=== PATIENT | female | born 1945 | race Caucasian/White ===

== ENCOUNTER 2025-05-21 09:41 | Inpatient (IN) | payer MEDICARE, OTHER ==
[~2025-05-21] VITALS: Ht 162.6 cm; Wt 60.3 kg
[~2025-05-21 09:41] MED LIST: AMLODIPINE BES2.5 MG PO; Acetaminophen650 M1 PO; DORZOLAMIDE-TIM10 ML RIGHTEYE; LISI20 PO; LOPERAMIDE212 PO; OXYC5 PO
[2025-05-21] MEDS ORDERED: Ondansetron HCl 2 MG / ML 2ML Vial IV ONE (10:00)
[2025-05-21 10:12] LABS: BASOPHILS ABSOLUTE AUTO 0.07 K/mm3 (0.00-0.23); BASOPHILS PERCENT AUTO 1 % (0-2); EOSINOPHILS ABSOLUTE AUTO 0.09 K/mm3 (0.00-0.68); EOSINOPHILS PERCENT AUTO 1 % (0-6); Hematocrit 46.9 % (33.0-51.0); Hemoglobin 15.5 g/dL (11.5-16.0); IMMATURE GRAN ABSOLUTE AUTO 0.07 K/mm3 (0.00-0.10); IMMATURE GRAN PERCENT AUTO 1 % (0-1); LYMPHOCYTES ABSOLUTE AUTO 1.49 K/mm3 (0.84-5.20); LYMPHOCYTES PERCENT AUTO 14 % (21-46); MONOCYTES ABSOLUTE AUTO 1.26 K/mm3 (0.16-1.47); MONOCYTES PERCENT AUTO 12 % (4-13); Mean Corpuscular HGB Conc 33.0 g/dL (31.5-36.5); Mean Corpuscular Volume 90 fL (80-100); NEUTROPHILS ABSOLUTE AUTO 7.41 K/mm3 (1.96-9.15); NEUTROPHILS PERCENT AUTO 71 % (41-73); NRBC ABSOLUTE 0.00 K/mm3 (0.00-0.02); NRBC Auto 0.0 /100 WBC (0.0-0.2); Platelet Count 343 K/mm3 (150-400); RDW Coefficient Variation 13.1 % (11.7-14.2); RDW Standard Deviation 43.7 fL (35.1-46.3)
[2025-05-21 10:33] LABS: Alanine Aminotransfer (ALT/SGP 16 U/L (12-78); Albumin, Blood 3.6 g/dL (3.4-5.0); Albumin/Globulin Ratio 1.0 (0.8-1.8); Anion Gap 11 mmol/L (3-11); Aspartate Aminotrans (AST/SGOT 16 U/L (12-37); Bilirubin, Total 0.8 mg/dL (0.1-1.0); Blood Urea Nitrogen 22 mg/dL (8-24); CO2, Blood 23 mmol/L (21-32); Calcium, Blood 8.8 mg/dL (8.5-10.1); Chloride, Blood 101 mmol/L (98-108); Creatinine, Blood 1.30 mg/dL (0.40-1.00); Globulin, Blood 3.6 g/dL (2.2-4.0); Glucose, Blood 132 mg/dL (70-99); Magnesium, Blood 1.9 mg/dL (1.6-2.4); Potassium, Blood 4.1 mmol/L (3.5-5.5); Sodium, Blood 131 mmol/L (136-145); Total Protein, Blood 7.2 g/dL (6.4-8.2)
[2025-05-21 12:11] LABS: Source, Urine Clean Catch
[2025-05-21 12:17] LABS: Bilirubin, Urine Neg (Neg); Glucose Qualitative, Urine Neg (Neg); Ketones, Urine 1+ (Neg); Leukocyte Esterase, Urine Neg (Neg); Protein, Urine 1+ (Neg); Specific Gravity, Urine 1.010 (1.003-1.022); Urobilinogen, Urine NORM (Normal)
[2025-05-21 12:20] LABS: Color, Urine Pale Yellow (P-Yellow)
[2025-05-21] MEDS ORDERED: ATELVIA PO (12:45)
[2025-05-21] MEDS ORDERED: D5W-LR 1,000 ML IV SCH (13:30)
[2025-05-21] MEDS ORDERED: FLU VACC TS2025(65UP)/MF59C/PF 45 MCG/0.5 ML SYRINGE IM SCH (13:30)
[2025-05-21] MEDS ORDERED: FentaNYL Citrate 50 MCG/ML 2 ML Injection IV PRN (13:35)
[2025-05-21] MEDS ORDERED: HydrALAZINE HCl 20 MG / ML 1ML Vial IV PRN (13:35)
[2025-05-21] MEDS ORDERED: Ondansetron HCl 2 MG / ML 2ML Vial IV PRN (13:35)
[2025-05-21 15:46] VITALS: BP 172/84
--- NOTE | 2025-05-21 18:18 | NUR ---
SHIFT SUMMARY PATIENT ADMITTED TO MEDICAL FROM ER. A/0 X4. NO SKIN CONCERNS. WAITING FOR [facility] TRANSFER OR TO HAVE MEASUREABLE BM. CALL LIGHT IN REACH, CARES ONGOING.
[2025-05-21 19:37] VITALS: BP 145/78
[2025-05-21] MEDS ORDERED: Dorzolamide/Timolol Opth Soln 10 ML BOTHEYES SCH (21:00)
[2025-05-22 00:13] VITALS: BP 133/75
--- NOTE | 2025-05-22 00:19 | NUR ---
ARPAN c BRANDI @ [facility] TRANSFER CENTER FOR UPDATE; REVIEWED MOST RECENT V/S AND CURRENT STATUS. PATIENT STILL PENDING TRANSFER; BED NOT AVAILABLE OF YET AND DOES NOT BELIEVE IT WILL BE TONIGHT.
[2025-05-22 04:19] VITALS: BP 132/67
--- NOTE | 2025-05-22 04:48 | NUR ---
ORIENTING NURSE DOCUMENTATION REVIEW: TREATMENTS, MEDICATIONS AND PATIENT CARE PROVIDED TO PATIENT AND DOCUMENTATION ENTERED BY ORIENTING NURSEDEB, OVERSEEN BY THIS RN.
[2025-05-22 05:22] LABS: BASOPHILS ABSOLUTE AUTO 0.04 K/mm3 (0.00-0.23); BASOPHILS PERCENT AUTO 1 % (0-2); EOSINOPHILS ABSOLUTE AUTO 0.13 K/mm3 (0.00-0.68); EOSINOPHILS PERCENT AUTO 2 % (0-6); Hematocrit 43.2 % (33.0-51.0); Hemoglobin 14.4 g/dL (11.5-16.0); IMMATURE GRAN ABSOLUTE AUTO 0.04 K/mm3 (0.00-0.10); IMMATURE GRAN PERCENT AUTO 1 % (0-1); LYMPHOCYTES ABSOLUTE AUTO 1.17 K/mm3 (0.84-5.20); LYMPHOCYTES PERCENT AUTO 15 % (21-46); MONOCYTES ABSOLUTE AUTO 1.08 K/mm3 (0.16-1.47); MONOCYTES PERCENT AUTO 14 % (4-13); Mean Corpuscular HGB Conc 33.3 g/dL (31.5-36.5); Mean Corpuscular Volume 89 fL (80-100); NEUTROPHILS ABSOLUTE AUTO 5.46 K/mm3 (1.96-9.15); NEUTROPHILS PERCENT AUTO 69 % (41-73); NRBC ABSOLUTE 0.00 K/mm3 (0.00-0.02); NRBC Auto 0.0 /100 WBC (0.0-0.2); Platelet Count 299 K/mm3 (150-400); RDW Coefficient Variation 13.0 % (11.7-14.2); RDW Standard Deviation 42.4 fL (35.1-46.3)
--- NOTE | 2025-05-22 05:28 | NUR ---
SHIFT SUMMARY PT EAGER TO ATTEMPT BOWEL CARE IN ORDER TO PASS BM, THOUGH NO BM YET. REMAINS NPO, AWAITING TRANSFER TO [facility] AT [facility] S[facility]. DR. SPENCER ACCEPTED. PENDING BED AVAILABILITY. PT CHILDREN WILL BRING HER TO VISIT TODAY -- HE'S ON HOSPICE AT HOME. MEDICATED X1 FOR PAIN/NAUSEA THIS EVENING. AMBULATES TO RESTROOM WITH STEADY GAIT AND SBA. TELE: SR @ 73 BPM. INFUSING D5W+LR @ 75 ML/HR IN LAC IV.
[2025-05-22 05:46] LABS: Alanine Aminotransfer (ALT/SGP 13.0 U/L (12-78); Albumin, Blood 3.1 g/dL (3.4-5.0); Albumin/Globulin Ratio 1.0 (0.8-1.8); Anion Gap 10.0 mmol/L (3-11); Aspartate Aminotrans (AST/SGOT 15.0 U/L (12-37); Bilirubin, Total 0.8 mg/dL (0.1-1.0); Blood Urea Nitrogen 17.0 mg/dL (8-24); CO2, Blood 22.0 mmol/L (21-32); Calcium, Blood 8.8 mg/dL (8.5-10.1); Chloride, Blood 106.0 mmol/L (98-108); Creatinine, Blood 1.08 mg/dL (0.40-1.00); Globulin, Blood 3.1 g/dL (2.2-4.0); Glucose, Blood 142.0 mg/dL (70-99); Potassium, Blood 3.7 mmol/L (3.5-5.5); Sodium, Blood 134.0 mmol/L (136-145); Total Protein, Blood 6.2 g/dL (6.4-8.2)
[2025-05-22] MEDS ORDERED: Pantoprazole Sodium 40 MG Injection IV SCH (06:00)
[2025-05-22 07:16] VITALS: BP 172/87
[2025-05-22 15:08] VITALS: BP 157/86
--- NOTE | 2025-05-22 18:01 | NUR ---
SHIFT SUMMARY PATIENT IS A&OX4, PLEASANT AND COOPERATIVE WITH CARE. SHE IS ON ROOM AIR, TELE WAS DISCONTINUED TODAY. SHE CALLS APPROPRIATELY. SBA TO THE BATHROOM. SHE HAD ONE SMALL BOWEL MOVEMENT AFTER BISACODYL SUPPOSITORY TODAY. SHE IS STILL WAITING ON A BED AT [facility]. DW5-LR RUNNING AT 75ML/HR. SHE HAS BEEN MEDICATED FOR PAIN PER EMAR, SHE REQUESTS. BED IS LOW AND LOCKED, CALL LIGHT IN REACH.
--- NOTE | 2025-05-22 18:12 | NUR ---
YVAN FROM [facility] TRANSFER CALLED TO GET AN UPDATE ON PATIENT. IF THERE ARE ANY CHANGES WITH PATIENT CONDITION, CALL [phone]
[2025-05-22 20:24] VITALS: BP 141/80
[2025-05-23 00:07] VITALS: BP 161/81
[2025-05-23 03:32] VITALS: BP 128/70
--- NOTE | 2025-05-23 05:17 | NUR ---
SHIFT SUMMARY NO ACUTE CHANGES OVERNIGHT. REMAINS NPO. A&OX4. 1P SBA TO RESTROOM. INFUSING D5W+LR @ 75ML/HR IN LAC IV. MEDICATED FOR NAUSEA PER EMAR X2 THIS EVENING. PT STILL EXPERIENCING LARGE AMOUNT OF PRESSURE IN ABDOMEN J-LOOP SITE DESPITE SMALL BM IN DAYTIME 05/22. [facility] WAITLIST UPDATED STILL NO BED AVAILABLE, RETURN CALL TO [facility] TRANSFER CENTER IF ANY CHANGES IN PATIENT STATUS AT [phone]. PT REPORTING BEGINNING TO FEEL DEPRESSED STAYING IN HOSPITAL. PT REQUEST TO BE SHARED BY THIS RN WITH DAY RN OF PT WANTING TO SEE IF PROVIDER WILL SEARCH FOR OTHER BEDS IN A HOSPITAL THAT WILL TAKE HER SOONER.
[2025-05-23 07:36] VITALS: BP 146/78
[2025-05-23] MEDS ORDERED: TPN Consult Notification XX ONE (13:15)
[2025-05-23 15:08] VITALS: BP 143/80
--- NOTE | 2025-05-23 15:47 | NUR ---
SHIFT SUMMARY PATIENT IS A&OX4, PLEASANT AND COOPERATIVE WITH CARE. SHE IS ON ROOM AIR AND DOES NOT HAVE TELEMETRY. SHE IS CONTINENT. SUPPOSITORY AND ENEMA USED TO PRODUCE STOOL. [facility] CALLED FOR BED SPACE AND SURGERY DATE. DR. GREER PLACED CONSULT FOR OUR DR. DOTY TO CONSULT PATIENT FOR SURGERY. DR. GREER ORDERED PPN, THIS IS ADMINISTERED ON THIS IS SHIFT. THE PATIENTS MOOD HAS BEEN PLEASANT AND SHE HASN'T EXPRESSED DEPRESSION BEYOND WISHING SHE CAN GET HOME TO SEE HER WHO IS ON HOSPICE. HER BED IS LOCKED AND LOW, CALL LIGHT IS IN REACH.
[2025-05-23 19:33] VITALS: BP 146/81
[2025-05-24 05:37] VITALS: BP 143/74
--- NOTE | 2025-05-24 06:07 | NUR ---
RRT SUMMARY PT A&OX4, VSS. ABLE TO COMMUNICATE NEEDS EFFECTIVELY. PT HAS BEEN ASLEEP FOR MOST OF THE NIGHT. CHEST RISE/RESPIRATIONS NOTED. UP INTERMITTENTLY TO USE BSC. PT REPORTS GOOD RESULTS W/ PSEDUO PREP. PT HAD 2 BOWEL MOVEMENTS SO FAR THIS SHIFT AT TIME OF NOTE. PT CONTINUES TO RECEIVE PPN AT 73 ML/HR. ZOFRAN AND FENTANYL ADMIN X 1 EACH W/ GOOD EFFECT. BED RAILS UP X 2, BED IN LOWEST POSITION, BED WHEELS LOCKED, PERSONAL BELONGINGS AND CALL LIGHT WITHIN REACH FOR SAFETY.
[2025-05-24 06:24] LABS: BASOPHILS ABSOLUTE AUTO 0.06 K/mm3 (0.00-0.23); BASOPHILS PERCENT AUTO 1 % (0-2); EOSINOPHILS ABSOLUTE AUTO 0.21 K/mm3 (0.00-0.68); EOSINOPHILS PERCENT AUTO 2 % (0-6); Hematocrit 42.2 % (33.0-51.0); Hemoglobin 14.0 g/dL (11.5-16.0); IMMATURE GRAN ABSOLUTE AUTO 0.06 K/mm3 (0.00-0.10); IMMATURE GRAN PERCENT AUTO 1 % (0-1); LYMPHOCYTES ABSOLUTE AUTO 1.67 K/mm3 (0.84-5.20); LYMPHOCYTES PERCENT AUTO 17 % (21-46); MONOCYTES ABSOLUTE AUTO 1.21 K/mm3 (0.16-1.47); MONOCYTES PERCENT AUTO 12 % (4-13); Mean Corpuscular HGB Conc 33.2 g/dL (31.5-36.5); Mean Corpuscular Volume 89 fL (80-100); NEUTROPHILS ABSOLUTE AUTO 6.84 K/mm3 (1.96-9.15); NEUTROPHILS PERCENT AUTO 68 % (41-73); NRBC ABSOLUTE 0.00 K/mm3 (0.00-0.02); NRBC Auto 0.0 /100 WBC (0.0-0.2); Platelet Count 277 K/mm3 (150-400); RDW Coefficient Variation 13.0 % (11.7-14.2); RDW Standard Deviation 42.6 fL (35.1-46.3)
[2025-05-24 06:52] LABS: Anion Gap 11 mmol/L (3-11); Blood Urea Nitrogen 15 mg/dL (8-24); CO2, Blood 25 mmol/L (21-32); Calcium, Blood 8.6 mg/dL (8.5-10.1); Chloride, Blood 104 mmol/L (98-108); Creatinine, Blood 1.25 mg/dL (0.40-1.00); Glucose, Blood 112 mg/dL (70-99); Magnesium, Blood 1.9 mg/dL (1.6-2.4); Phosphorus, Blood 3.9 mg/dL (2.5-4.9); Potassium, Blood 3.5 mmol/L (3.5-5.5); Sodium, Blood 136 mmol/L (136-145); Triglycerides 117 mg/dL (30-160)
[2025-05-24 07:56] VITALS: BP 137/73
[2025-05-24] MEDS ORDERED: TPN Consult Notification XX ONE (10:35)
[2025-05-24 11:39] VITALS: BP 138/70
[2025-05-24] MEDS ORDERED: Polyethylene Glycol 3350 17 gm PO SCH (12:25)
[2025-05-24 15:49] VITALS: BP 141/82
[2025-05-24] MEDS ORDERED: Parenteral Electolytes 40 ML,Potassium Phosphate Dibasic 30 MM,Multivitamins 10 ML,ZINC... IV SCH (17:00)
--- NOTE | 2025-05-24 18:43 | NUR ---
SUMMARY- PT A/O X4, SBA TO BATHROOM WITH IV POLE. INDEPENDANT NOW THAT PPN DC'D. ADVANCED DIET SLOWLY, TOLERATED GEN CHICKEN AND RICE DINNER. NO NAUSEA. TAKING IN ADQ FLUIDS. VOIDING AND HAD SM LOOSE STOOL A FEW TIMES TODAY, BUT PT STATES SHE FEELS GENERALLY CLEANED OUT. DENEIS ANY DIDTENDED FEELING BEFORE. TYLENOL FOR ABREU TODAY EFFECTIVE. DAUGHTER IN TO VISIT FROM [facility] LATER IN [place]. PT HOPEFUL TO GO HOME TOMORROW. WILL REPORT TO NOC RN
[2025-05-24 20:29] VITALS: BP 126/70
--- NOTE | 2025-05-25 05:05 | NUR ---
WOOL MIXER SUMMARY PT A&OX4, VSS. ABLE TO COMMUNICATE NEEDS EFFECTIVELY. PT HAS BEEN ASLEEP FOR MOST OF THE SHIFT. CHEST RISE/RESPIRATIONS NOTED. INDEPENDENT IN ROOM. NO IV PER ORDER. PT DID REFUSE COLACE AND SENNA IN THE EVENING DESPITE VERBALIZING UNDERSTANDING TO EDUCATION. PROVIDER NOTIFIED AND NO FURTHER ORDERS AT THIS TIME. PT STATES PLAN IS FOR HER TO GET DISCHARGED TOMORROW IN THE AFTERNOON. BED RAILS UP X 2, BED IN LOWEST POSITION, BED WHEELS LOCKED, PERSONAL BELONGINGS AND CALL LIGHT WITHIN REACH FOR SAFETY.
[2025-05-25 05:30] VITALS: BP 135/72
[2025-05-25 06:15] LABS: Magnesium, Blood 1.8 mg/dL (1.6-2.4); Phosphorus, Blood 3.5 mg/dL (2.5-4.9)
[2025-05-25 07:35] VITALS: BP 131/73
[2025-05-25] MEDS ORDERED: MIRALAX17 GM PO (13:21)
--- NOTE | 2025-05-25 14:03 | NUR ---
PT DIACHARGED WITH INSTRUCTIONS 1340 VIA WHEELCHAIR STAFF ESCORT TO CAR, FRIEND TO DRIVE HOME;. SENT HOME WITH BELONGINGS
== END 2025-05-25 13:44 | disposition home or self-care (01) | DRG 394 ==
LOC: ER 09:41 → MEDS 13:28 → ENPENDDIS 05-25 11:48 → MEDS 05-25 13:44
PROVIDERS: Student in an Organized Health Care Education/Training Program; ADMIT Internal Medicine
PROC: 3E0336Z Introduction of Nutritional Substance into Peripheral Vein, Percutaneous Approach (ICD-10-PCS; principal; 2025-05-23)
DX: K94.19 Other complications of enterostomy (principal); E87.1 Hypo-osmolality and hyponatremia; K91.30 Postprocedural intestinal obstruction, unspecified as to partial versus complete; M81.0 Age-related osteoporosis without current pathological fracture; I12.9 Hypertensive chronic kidney disease with stage 1 through stage 4 chronic kidney disease, or unspecified chronic kidney disease; Z66 Do not resuscitate; N18.31 Chronic kidney disease, stage 3a; Z79.899 Other long term (current) drug therapy; Z88.1 Allergy status to other antibiotic agents; Z88.2 Allergy status to sulfonamides; Z88.8 Allergy status to other drugs, medicaments and biological substances; Z87.81 Personal history of (healed) traumatic fracture; Z90.710 Acquired absence of both cervix and uterus; Z90.49 Acquired absence of other specified parts of digestive tract; Z90.89 Acquired absence of other organs; Z98.890 Other specified postprocedural states
CPT/HCPCS: 36415; 74177; 80048; 80053; 82947; 83605; 83690; 83735; 84100; 84478; 85025; 96374-59; 99285-25; A9270; J2405; J2470; J3010; J3411; J7060; J7120; J7121; Q9967